=== PATIENT | male | born 1965 | race Caucasian/White ===

== ENCOUNTER 2019-05-01 21:43 | Emergency (ER) | payer MEDICAID ==
[~2019-05-01] VITALS: Ht 165.1 cm; Wt 73.9 kg
[2019-05-01 22:27] VITALS: BP 113/82
== END 2019-05-01 22:27 | disposition home or self-care (01) ==
LOC: ED 21:43
DX: I50.9 Heart failure, unspecified (principal); I11.0 Hypertensive heart disease with heart failure; Z76.0 Encounter for issue of repeat prescription